=== PATIENT | male | born 1995 | race Two or more races ===

== ENCOUNTER 2020-09-06 13:12 | Emergency (ER) | payer SELFPAY ==
[~2020-09-06] VITALS: Ht 190.5 cm; Wt 96.0 kg
--- NOTE | 2020-09-06 13:22 | NUR ---
BIB [facility]. PT FOUND LAYING IN MIDDLE OF RO[place], [place], THEN RAN OFF. [facility] FOUND PT HAVING "PSUEDO SEIZURE". PT HAS BEEN UNRESPONSIVE FOR [facility]. CABIN CLEANER [facility]: PIV 20G LFA, BS 93, NPA R NARE. PT UNRESPONSIVE. PT CONNECTED TO MONITORING. BELONINGS PLACED IN BELONGINGS BAG. NPA CONTINUE IN R NARE. NO ID FOUND ON PT BELONGINS.
--- NOTE | 2020-09-06 13:41 | NUR ---
PT RAN OUT OF AMBULANCE BAY YELLING "I KNOW WHAT HAPPENS". PT STILL HAS PIV IN ARM, [facility] NOTIFIED. PT LEFT BELONGINGS AT BEDSIDE. BELONGINGS BAG GIVEN TO POTTERY DECORATOR.
--- NOTE | 2020-09-06 14:06 | NUR ---
TECHNOLOGY EDUCATION TEACHER: PT RETURNED VIA EMS. TO ROOM VIA [facility]
--- NOTE | 2020-09-06 14:16 | NUR ---
REPORT RECIVED, PT NOT RESPONDING TO STAFF, VSS,
[2020-09-06] MEDS ORDERED: LORazepam 2 MG/ML, 1ML ONE (14:56)
[2020-09-06] MEDS ORDERED: ZIPRASIDONE 20 MG INJ IM ONE ×3 (15:00→22:30)
--- NOTE | 2020-09-06 15:00 | NUR ---
pt jumpped up and ran when lab was drawing blood, pt was yelling, and confused stated "you are all going to in 20 min" was unable to be reasoned with, still dosent know his name, pt was then with 6 securty guards and 5 other staff members, admin anxity meds and restrained to [facility].
[2020-09-06 15:17] LABS: BASOPHILS % (AUTO) 0 % (0-1); EOSINOPHILS % (AUTO) 0 % (1-7); LYMPHOCYTES % (AUTO) 9 % (22-44); MEAN CORPUSCULAR HEMOGLOBIN 29.5 pg (27.5-34.5); MEAN CORPUSCULAR HGB CONC 32.9 g/dL (33.2-36.2); MEAN PLATELET VOLUME 7.9 fL (7.4-10.4); MONOCYTES % (AUTO) 5 % (2-9); NEUTROPHILS % (AUTO) 85 % (42-75); PLATELET COUNT 355 x10^3/uL (130-400); RED BLOOD COUNT 5.48 x10^6/uL (4.38-5.82); RED CELL DISTRIBUTION WIDTH 12.9 % (9.4-14.8)
[2020-09-06 15:18] LABS: MD NO
[2020-09-06 15:23] LABS: ALBUMIN 4.5 g/dL (3.4-5.0); ANION GAP 10 mmol/L (5-15); CALCIUM 9.9 mg/dL (8.5-10.1); CHLORIDE 109 mmol/L (98-107)
[2020-09-06 15:31] LABS: ALANINE AMINOTRANSFERASE 36 U/L (12-78); ALKALINE PHOSPHATASE 75 U/L (45-117); BILIRUBIN,TOTAL 0.6 mg/dL (0.2-1.0); CREATININE 1.47 mg/dL (0.7-1.3)
[2020-09-06 15:37] LABS: SALICYLATE LEVEL < 1.7 mg/dL (2.8-20.0)
[2020-09-06] MEDS ORDERED: LORazepam 2 MG/ML, 1ML IVPush ONE (16:00)
--- NOTE | 2020-09-06 16:00 | NUR ---
pt restrained 4 points, st cath sent to lab. no other change
[2020-09-06 16:30] LABS: AMPHETAMINE SCREEN, URINE Negative (Negative); BARBITURATE SCREEN, URINE Negative (Negative); BENZODIAZEPINE SCREEN, URINE Positive (Negative); CANNABINOID SCREEN, URINE Positive (Negative); COCAINE SCREEN, URINE Negative (Negative); METHADONE SCREEN, URINE Negative (Negative); OPIATE SCREEN, URINE Negative (Negative)
[2020-09-06 16:31] LABS: MICROSCOPIC INDICATED
[2020-09-06] MEDS ORDERED: SODIUM CHLORIDE 0.9% 1,000ML IVBOLUS ONE (17:00)
--- NOTE | 2020-09-06 17:06 | NUR ---
no change, readjust restraints, vss
--- NOTE | 2020-09-06 18:30 | NUR ---
SECURITY CALLED, REQUESTED TWO RESTRAINTS TO BE REMOVED. PT STILL NOT ANSWERING QUESTIONS APPROPRIATELY, DOES NOT FOLLOW COMMANDS BUT APPEARS LESS AGITATED AT THIS TIME.
--- NOTE | 2020-09-06 19:43 | NUR ---
190: FIRST CONTACT WITH PT, REPORT FROM LION MURRAY. PT DROWSY POST MEDICATED. REMAINS IN 2PT LEATHER. SEE CHECK LIST. SITTER LINE OF SITE, BELONGINGS TO LOCKED STORAGE UNIT. VSS
--- NOTE | 2020-09-06 20:11 | NUR ---
PT IS NOW ANSWERING QUESTIONS, TELLS ME HE IS FROM [place] VISITING A FRIEND BUT DOESN'T WANT TO SAY WHERE HE IS STAYING, SAYS HE WILL BE GOING BACK TO [place] SOON. SAYS HIS NAME IS ENEDINA CLIFTON BUT PAUSES BEFORE TELLING ME THIS. STATES HE HAS ADD TAKES NON STIMULANT MEDICATION BUT HASN'T HAD ANY IN LONG TIME. SAYS HE DOES NOT REMEMBER WHAT HAPPEND IN ER EARLIER OR WHY HE IS HERE BUT TEARS UP SAYING HE HAS BEEN THROUGH A LOT LOST A RELATIVE AND MANY FRIENDS BACK HOME. HE DENIES SI/HI AT THIS TIME. PT GIVEN WATER, URINAL. INFORMED ERP WHO WILL INTERVIEW HIM AND EVAL FOR RESTRAINT RELEASE.
--- NOTE | 2020-09-06 21:00 | NUR ---
PT SLEEPING, RR EQUAL AND UNLABORED. WILL CONTINUE TO MONITOR.
--- NOTE | 2020-09-06 21:31 | NUR ---
REQUESTED RE-EVAL BY ERP.
--- NOTE | 2020-09-06 22:12 | NUR ---
PT NOW CALM, COOPERATIVE DR CAMPOS RE-EVAL PT. INFORMED OF POC PLACED ON HOLD AND WILL HAVE PSYCH EVAL IN AM. PT IS IN AGREEMENT OF THIS. SECURITY NOTIFIED OF RELEASE OF EDWIN. LICENSE ISSUER SEVEN NOTIFIED. CUTTING DEPARTMENT SUPERVISOR/CAMERAS NOTIFIED, SITTER NOTIFIED. FOOD/FLUIDS PROVIDED TO PT.
--- NOTE | 2020-09-06 22:22 | NUR ---
GARAGE DOORS DOWN, ROOM SAFETY CHECKED. PT IS CALM, COOPERATIVE. FOOD/FLUID PROVIDED. URINAL PROVIDED. VSS. SITTER IN LINE OF SITE, WILL CONTINUE TO MONITOR.
[2020-09-06] MEDS ORDERED: LORazepam 1MG TABLET PO PRN (22:30)
--- NOTE | 2020-09-06 23:14 | NUR ---
SLEEPING, RR EQUAL AND UNLABORED. SITTER IN LINE OF SITE. WILL CONTINUE TO MONITOR.
--- NOTE | 2020-09-07 01:03 | NUR ---
PT REMAINS CALM, COOPERATIVE. WATCHING TV. OFFERRED ATIVAN, PT REFUSED. SITTER IN LINE OF SITE WILL CONTINUE TO MONITOR.
--- NOTE | 2020-09-07 01:59 | NUR ---
PT WATCHING TV, CALM COOPERATIVE. SITTER OUTSIDE ROOM. WILL CONTINUE TO MONITOR.
--- NOTE | 2020-09-07 03:38 | NUR ---
WATCHING TV, IS CALM. SITTER IN LINE OF SITE. WILL CONTINUE TO MONITOR.
--- NOTE | 2020-09-07 03:55 | NUR ---
SLEEPING, SITTER IN LINE OF SITE. WILL CONTINUE TO MONITOR.
--- NOTE | 2020-09-07 05:40 | NUR ---
PT WATCHING TV, CALM, COOPERATIVE. SITTER IN LINE OF SITE.
--- NOTE | 2020-09-07 06:54 | NUR ---
REPROT TO TREVOR ARGUETA
--- NOTE | 2020-09-07 07:02 | NUR ---
Report from TREVOR Lawson. Pt sitting up in bed, calm and cooperative.
--- NOTE | 2020-09-07 07:54 | NUR ---
Pt now sleeping, resp. even/unlabored. Appears comfortable.
--- NOTE | 2020-09-07 08:20 | NUR ---
Breakfast tray ordered
[2020-09-07 08:46] VITALS: BP 124/78
--- NOTE | 2020-09-07 08:47 | NUR ---
Pt A/O X 4, calm and cooperative. States that his name is Jaylan. Appologetic about yesterdays events. States feeling much better this morning.
--- NOTE | 2020-09-07 11:36 | NUR ---
pt AOx4, calm and cooperative. pt denies any needs at this time. will continue to monitor.
--- NOTE | 2020-09-07 12:30 | NUR ---
pt calm and cooperative, laying in bed. no complaints or other issues noted at this time. will continue to monitor
--- NOTE | 2020-09-07 13:18 | NUR ---
CELLOPHANE TESTER: PT RAN OUT AND BROKE THE ED EMERGENCY EXIT DOOR, AND DROPPED BELONGINGS
== END 2020-09-07 13:19 | disposition home or self-care (01) ==
LOC: ED 09-07 08:50
DX: F23 Brief psychotic disorder (principal)
CPT/HCPCS: 36415; 80053; 80307; 81001; 82550; 84443; 85025; 87086; 96361; 96372; 96374; 99285; J2060; J3486; J7030